=== PATIENT | male | born 1945 | race Caucasian/White ===

== ENCOUNTER → 2020-07-27 13:09 | Outpatient (CLI) | payer MEDICARE, BC, SELFPAY ==
--- NOTE | 2020-07-27 13:14 | CA_ITS ---
APPROVED REPORT [employer] Director: NESTOR Laterality: Bilateral Study Quality: Good Indications: amaurosis fugax H/O LVAD X 10 YRS,CAD Doppler Spectral Velocity Analysis dICA (R) 43.70/30.00 cm/s dICA (L) 40.80/26.20 cm/s Ling (R) 56.00/34.90 cm/s Ling (L) 32.30/19.80 cm/s pICA (R) 42.80/25.10 cm/s pICA (L) 23.10/11.70 cm/s dCCA (R) 36.70/25.60 cm/s dCCA (L) 34.30/17.80 cm/s pCCA (R) 31.40/16.50 cm/s pCCA (L) 43.00/15.70 cm/s Vert (R) 18.40/11.00 cm/s Vert (L) 23.90/10.50 cm/s ICA/CCA 1.50 ICA/CCA 1.20 Findings Duplex evaluation demonstrates stenosis of the right proximal internal carotid artery <20% with PSV <140 cm/sec, EDV <100 cm/sec, and IC/CC Ratio <4.0.Duplex evaluation demonstrates stenosis of the left proximal internal carotid artery <20% with PSV <140 cm/sec, EDV <100 cm/sec, and IC/CC Ratio <4.0.Antegrade flow seen bilateral vertebral arteries. Conclusion Duplex evaluation demonstrates stenosis of the right proximal internal carotid artery <20% with PSV <140 cm/sec, EDV <100 cm/sec, and IC/CC Ratio <4.0.Duplex evaluation demonstrates stenosis of the left proximal internal carotid artery <20% with PSV <140 cm/sec, EDV <100 cm/sec, and IC/CC Ratio <4.0.Antegrade flow seen bilateral vertebral arteries. Electronically signed by : Guerrero Lees MD 07/27/2020 17:32:47
== END ==
PROVIDERS: PCP Family Medicine; Visit Provider Family Medicine
DX: G45.3 Amaurosis fugax (principal)
CPT/HCPCS: 93880